=== PATIENT | male | born 1960 | race Caucasian/White ===

== ENCOUNTER 2016-12-15 12:47 | Emergency (ER) | payer OTHER ==
[~2016-12-15 12:47] MED LIST: BACLOFEN10 MG PO; DOXYCYCLINE PO; FLAGYL PO; IBUPROFEN PO; NEURONTIN600 MG PO; VICODIN PO
== END 2016-12-15 13:41 | disposition home or self-care (01) ==
LOC: CFTX 12:47
DX: L02.01 Cutaneous abscess of face (principal); F17.210 Nicotine dependence, cigarettes, uncomplicated; Z23 Encounter for immunization
CPT/HCPCS: 10060; 90471; 90715; 99283